=== PATIENT | male | born 1975 | race Caucasian/White ===

== ENCOUNTER 2020-12-24 05:54 | Day surgery (SDC) | payer OTHER ==
[2020-12-23 15:53] LABS: BASOPHILS % (AUTO) 1 % (0-1); EOSINOPHILS % (AUTO) 1 % (1-7); LYMPHOCYTES % (AUTO) 27 % (22-44); MEAN CORPUSCULAR HEMOGLOBIN 28.8 pg (27.5-34.5); MEAN CORPUSCULAR HGB CONC 33.2 g/dL (33.2-36.2); MEAN PLATELET VOLUME 9.3 fL (7.4-10.4); MONOCYTES % (AUTO) 7 % (2-9); NEUTROPHILS % (AUTO) 64 % (42-75); PLATELET COUNT 184 x10^3/uL (130-400); RED BLOOD COUNT 5.19 x10^6/uL (4.38-5.82)
[2020-12-23 16:04] LABS: ALANINE AMINOTRANSFERASE 24 U/L (12-78); ALBUMIN 3.8 g/dL (3.4-5.0); CHLORIDE 106 mmol/L (98-107)
[2020-12-23 16:06] LABS: ALKALINE PHOSPHATASE 61 U/L (45-117); ANION GAP 5 mmol/L (5-15); BILIRUBIN,TOTAL 0.4 mg/dL (0.2-1.0); CALCIUM 9.7 mg/dL (8.5-10.1); CREATININE 1.09 mg/dL (0.7-1.3)
[~2020-12-24] VITALS: Ht 190.5 cm; Wt 110.7 kg
[2020-12-24] MEDS ORDERED: HEPARIN 1,000 UNITS/ML, 30ML ONE (06:55)
[2020-12-24] MEDS ORDERED: THROMBIN 20,000 UNIT VIAL TP ONE (06:55)
[2020-12-24] MEDS ORDERED: VISIPAQUE 270 MG/ML, 50ML BOTTLE ONE ×2 (06:55→12:00)
[2020-12-24] MEDS ORDERED: PROTAMINE SULFATE 10 MG/ML, 5ML ONE ×2 (06:56→11:15)
[2020-12-24 06:59] VITALS: BP 144/87
[2020-12-24] MEDS ORDERED: LISI-606 PO (07:07)
[2020-12-24] MEDS ORDERED: METF10007 PO (07:07)
[2020-12-24] MEDS ORDERED: LIDOCAINE-MPF 2% ,5ML ONE (07:12)
[2020-12-24] MEDS ORDERED: PROPOFOL 10 MG/ML, 20ML ONE (07:12)
[2020-12-24] MEDS ORDERED: ROCURONIUM 10MG/ML,5ML ONE (07:13)
[2020-12-24] MEDS ORDERED: LACTATED RINGERS 1,000 ML IV SCH (07:30)
[2020-12-24] MEDS ORDERED: CHLORHEXIDINE 15 ML UDC PO ONE (07:30)
[2020-12-24] MEDS ORDERED: morphine SULFATE 10 MG/ML, 1ML IVPush PRN (08:00)
[2020-12-24] MEDS ORDERED: FENTANYL PF 100 MCG/2ML IV PRN (08:00)
[2020-12-24] MEDS ORDERED: ACETAMINOPHEN 325 MG TABLET PO PRN (08:00)
[2020-12-24] MEDS ORDERED: HYDROcodone/APAP 7.5-325MG/15ML UDC PO PRN (08:00)
[2020-12-24] MEDS ORDERED: PROMETHAZINE 25 MG/ML, 1ML IVPush PRN (08:00)
[2020-12-24] MEDS ORDERED: PHENYLEPHRINE 10 MG/ML ONE (08:01)
[2020-12-24] MEDS ORDERED: HEPARIN 1,000 UNITS/ML, 10ML ONE ×2 (08:38→09:16)
[2020-12-24] MEDS ORDERED: PROTAMINE SULFATE 10 MG/ML, 25ML ONE (08:38)
[2020-12-24] MEDS ORDERED: EPHEDRINE 50 MG/ML, 1ML ONE (09:11)
[2020-12-24] MEDS ORDERED: ONDANSETRON 2MG/ML, 2ML ONE (10:05)
[2020-12-24] MEDS ORDERED: FENTANYL PF 100 MCG/2ML ONE (10:17)
[2020-12-24] MEDS ORDERED: APIX5TAB PO (11:15)
[2020-12-24] MEDS ORDERED: APIXABAN 5 MG TABLET PO SCH (11:30)
[2020-12-24] MEDS ORDERED: PROTAMINE SULFATE 10 MG/ML, 5ML IVPush ONE (11:30)
[2020-12-24] MEDS ORDERED: APIXABAN 5 MG TABLET ONE ×2 (12:01→12:07)
== END 2020-12-24 15:15 | disposition home or self-care (01) ==
LOC: OUT 05:54
PROVIDERS: ATTEND Surgery
DX: I82.5Y2 Chronic embolism and thrombosis of unspecified deep veins of left proximal lower extremity (principal); I82.542 Chronic embolism and thrombosis of left tibial vein; E11.9 Type 2 diabetes mellitus without complications; N28.89 Other specified disorders of kidney and ureter; G47.33 Obstructive sleep apnea (adult) (pediatric); Z20.822 Contact with and (suspected) exposure to COVID-19; Z79.84 Long term (current) use of oral hypoglycemic drugs; Z79.899 Other long term (current) drug therapy; Z83.3 Family history of diabetes mellitus
CPT/HCPCS: 36415; 37238; 71046; 75820; 80053; 82962; 85025; 93005; C1725; C1751; C1769; C1876; C1894; J1644; J2370; J2405; J2704; J2720; J3010; J7120; Q9966; U0003; U0005; 76937